=== PATIENT | male | born 1950 | race Caucasian/White ===

== ENCOUNTER → 2017-01-18 | Outpatient (CLI) | payer MEDICARE, BC ==
[2017-01-18 20:44] LABS: ALT 30 U/L (21-72); AST 23 U/L (17-59); Alkaline Phosphatase 74 U/L (38-126); Anion Gap 10 mmol/L; Blood Urea Nitrogen 14 mg/dL (9-20); Calcium 9.2 mg/dL (8.4-10.2); Carbon Dioxide 25 mmol/L (22-30); Chloride 106 mmol/L (98-107); Cholesterol 124 mg/dL (<200); Glucose 146 mg/dL (74-99); HDL Cholesterol 32 mg/dL (40-60); Non-African American GFR(MDRD) >60 (>60 ml/min/1.73 sqM); Sodium 141 mmol/L (137-145); Total Bilirubin 0.8 mg/dL (0.2-1.3); Total Protein 6.9 g/dL (6.3-8.2); Triglycerides 248 mg/dL (<150)
[2017-01-18 21:59] LABS: Hemoglobin A1C 6.2 % (4.2-6.1)
== END ==
LOC: MMGSC 10:28
PROVIDERS: ATTEND Family Medicine
DX: I10 Essential (primary) hypertension (principal); E11.9 Type 2 diabetes mellitus without complications
CPT/HCPCS: 36415; 80053; 80061; 83036

== ENCOUNTER → 2017-12-15 | Outpatient (CLI) | payer MEDICARE, BC ==
[2017-12-15 11:10] LABS: ALT 36 U/L (21-72); AST 23 U/L (17-59); Cholesterol 108 mg/dL (<200); HDL Cholesterol 32 mg/dL (40-60); LDL Cholesterol,Calculated 39 mg/dL (0-99); Triglycerides 185 mg/dL (<150)
== END | disposition home or self-care (01) ==
LOC: LABWHC1 10:19
PROVIDERS: ATTEND Internal Medicine Interventional Cardiology
DX: E78.2 Mixed hyperlipidemia (principal)
CPT/HCPCS: 36415; 80061; 84450; 84460

== ENCOUNTER 2018-05-17 08:06 | Day surgery (SDC) | payer MEDICARE, BC ==
[~2018-05-17 08:06] MED LIST: LACTATED RINGERS 1,000 ML IV SCH
[2018-05-17 08:51] VITALS: TEMP 97.9
[2018-05-17 08:59] LABS: Glucose,Whole Blood 156 mg/dL (75-99)
[2018-05-17] MEDS ORDERED: PROPOFOL 10 MG/ML 20 ML VIAL IV ONE (09:09)
[2018-05-17 09:42] VITALS: RESP 16
--- NOTE | 2018-05-17 09:46 | P.PCN ---
Date of Procedure: 05/17/18 Procedure(s) Performed: Procedure: Colonoscopy and biopsy. Preoperative diagnosis: Screening for neoplasia. Postoperative diagnosis: Diminutive polyp around the hepatic flexure biopsied, otherwise, exam to the cecum within normal limits. Preparation: HalfLytely prep. Sedation: Was provided by anesthesia. Brief clinical history: The patient is a 67-year-old male who is scheduled for this evaluation for screening for neoplasia age being his risk factor. There is no family history of colon cancer. He has no abdominal complaints, bleeding or anemia. He had a prior colonoscopy around 8 years ago. Procedure: With the patient on his left lateral decubitus position and after informed consent and adequate sedation, the perianal area was inspected and it did not show any fissures or fistulas. There was skin redundancy and relaxation and external skin tags. There were no masses felt on digital rectal examination. The Olympus CFQ 160L video colonoscope was then inserted in the rectum in the usual fashion and advanced to the cecum. There was a diminutive polyp around the hepatic flexure which I biopsied, but there were no large polyps or cancer. The mucosa appeared healthy. No other polyps or tumors were seen or any obvious diverticular disease or other pathology. I retroflexed the endoscope in the rectum before the endoscope was withdrawn. The patient tolerated the procedure well. Plan: The patient was reassured. He will follow up with you as planned and I recommended repeat exam in 5-10 years depending on the pathology results.
[2018-05-17 10:00] VITALS: BP 118/66; PULSE 49
== END 2018-05-17 10:41 | disposition home or self-care (01) ==
LOC: ORWHC2ENDO 08:06
DX: Z12.11 Encounter for screening for malignant neoplasm of colon (principal); D12.3 Benign neoplasm of transverse colon; J45.909 Unspecified asthma, uncomplicated; I10 Essential (primary) hypertension; G47.33 Obstructive sleep apnea (adult) (pediatric); E78.5 Hyperlipidemia, unspecified; M19.90 Unspecified osteoarthritis, unspecified site; N40.0 Benign prostatic hyperplasia without lower urinary tract symptoms; Z95.5 Presence of coronary angioplasty implant and graft; I25.10 Atherosclerotic heart disease of native coronary artery without angina pectoris; E11.9 Type 2 diabetes mellitus without complications; Z79.82 Long term (current) use of aspirin; Z79.84 Long term (current) use of oral hypoglycemic drugs; Z79.899 Other long term (current) drug therapy
CPT/HCPCS: 88305; 45380; J2704

== ENCOUNTER → 2019-03-10 | Outpatient (CLI) | payer MEDICARE, OTHER ==
[2019-03-10 12:38] LABS: HCT 41.5 % (39.0-53.0); MCH 30.2 pg (25.0-35.0); MCHC 33.8 g/dL (31.0-37.0); MCV 89.2 fL (80.0-100.0); Mean Platelet Volume 7.1; Platelet Count 187 k/uL (150-450); RBC 4.65 m/uL (4.30-5.90); RDW 14.7 % (11.5-15.5); WBC 5.2 k/uL (3.8-10.6)
[2019-03-10 12:42] LABS: Potassium 4.2 mmol/L (3.5-5.1)
== END | disposition home or self-care (01) ==
LOC: LABWHC1 11:46
PROVIDERS: ATTEND Internal Medicine Interventional Cardiology
DX: Z01.812 Encounter for preprocedural laboratory examination (principal); I25.10 Atherosclerotic heart disease of native coronary artery without angina pectoris
CPT/HCPCS: 80051; 82565; 84520; 85027

== ENCOUNTER → 2019-03-20 | Day surgery (SDC) | payer MEDICARE, OTHER ==
[2019-03-15 14:47] VITALS: BMI 26.2
[~2019-03-20] MED LIST changes: +ALPRAZolam 0.25 MG TAB PO PRN; +ALPRAZolam 0.5 MG TAB PO PRN; +ASPIRIN 325 MG TAB PO ONE; +ATORVASTATIN 80 MG TAB PO ONE; +HEPARIN SODIUM 1,000 UN/ML (10ML VL) IV ONE; +HEPARIN SODIUM 1,000 UN/ML (10ML VL) ONE; +IOPAMIDOL-370 125ML BTL INJ ONE; +IV FLUID CONTINUATION 600 ML IV ONE; -LACTATED RINGERS 1,000 ML IV SCH; +LIDOCAINE 1% INJ 10MG/ML (20 ML MDV) ONE; +LIDOCAINE 1% INJ 10MG/ML (20 ML MDV) SQ ONE; +MIDAZOLAM (PF) 2 MG/2 ML VIAL IV ONE; +NITROGLYCERIN SL TABS 0.4 MG TAB SUBLINGUAL PRN; +RX INFO: IV CONTRAST WAS GIVEN 1 EACH MISC MISCELLANE PRN; +SODIUM CHLORIDE 0.9% 1,000 ML IV SCH; +SODIUM CHLORIDE 0.9% 1,000 ML in EMPTY BAG 1 BAG IV ONE; +VERAPAMIL 2.5 MG/ML 2 ML AMP ONE; +fentaNYL (PF) 50 MCG/ML 2 ML AMP IV ONE; +fentaNYL (PF) 50 MCG/ML 2 ML AMP ONE
[2019-03-20 07:12] LABS: Glucose,Whole Blood 160 mg/dL (75-99)
[2019-03-20 07:14] VITALS: TEMP 98.1
[2019-03-20] MEDS: BENZOCAINE SPRAY 1 CAN MUCOUS MEM ONE ×2 (08:30→08:38)
[2019-03-20] MEDS: MIDAZOLAM (PF) 2 MG/2 ML VIAL IV ONE ×2 (08:41→08:43)
[2019-03-20] MEDS: VERAPAMIL SYRINGE (5 MG/10 ML) INTRAARTER ONE ×2 (09:23→09:37)
--- NOTE | 2019-03-20 09:40 | ECHOT ---
TRANSESOPHAGEAL ECHOCARDIOGRAM DATE OF SERVICE: 03/20/2019 PERFORMING PHYSICIAN: Amilcar Patterson MD, Securities Research Analyst. PROCEDURE PERFORMED: Transesophageal echocardiogram. INDICATION: This is a very pleasant 68-year-old gentleman who is known to have mitral regurgitation, who was experiencing recently progressing shortness of breath with exertion with the feeling of tired and fatigued. Recent transthoracic echocardiogram revealed moderate to severe mitral regurgitation and he was brought today to undergo a ULICES. COMPLICATION: None. LEVEL OF SEDATION: Moderate with sedation length of 15 minutes. PROCEDURE DESCRIPTION: After obtaining an informed consent, the patient was brought to the transesophageal echocardiogram suite. A pulse oximetry and heart rate monitors were attached the patient. The patient was turned into left lateral position. Subsequently the patient was sedated using 3 mg of Versed and 50 mcg of fentanyl on divided doses. The transesophageal echocardiogram probe was advanced through the bite guard to the mid esophagus where a 2D echocardiogram images, continuous and pulse-wave Doppler, as well as color Dopplers were performed. Particular attention was paid to the mitral valve apparatus. Subsequently we did agitated saline study to look for patent foramen ovale. The procedure was completed without any complication. FINDINGS: The left ventricular dimension and systolic function appeared to be within normal limits. The ejection fraction was about 55%. The right ventricle appeared to be of normal size and function. The left atrium is severely dilated. The left atrial appendage appeared to be free from any thrombus. The interatrial septum appeared to be intact without any evidence of shunt. The aortic valve is trileaflet valve without stenosis with mild insufficiency. The mitral valve is thickened with evidence of moderate mitral regurgitation by PISA. The tricuspid valve and pulmonic valve appear to be within normal limits. The interatrial septum appeared to be intact without any evidence of shunt. CONCLUSION: 1. Normal left ventricular dimension and systolic function. 2. Normal right ventricular dimension and systolic function. 3. Severely dilated left atrium. 4. Intact interatrial septum. 5. Intact left atrial appendage. 6. Trileaflet aortic valve without stenosis with mild insufficiency. 7. Thickened anterior and posterior mitral leaflet with evidence of moderate mitral insufficiency. 8. The mitral insufficiency was quantitated using PISA. 9. Normal tricuspid valve and pulmonic valve. 10.No evidence of pericardial effusion. MMODL / IJN: [id number] /
--- NOTE | 2019-03-20 09:48 | P.PCN ---
Date of Procedure: 03/20/19 Operative Findings: CARDIAC CATHETERIZATION PERFORMING PHYSICIAN: Amilcar Patterson MD, RPVI PROCEDURE PERFORMED: 1. Selective right and left coronary angiogram 2. Left heart catheterization INDICATION: This is a pleasant 68-year-old gentleman who was diagnosed recently was moderate to severe MR by transthoracic echocardiogram was brought today to undergo a transesophageal echocardiogram as well as heart catheterization. COMPLICATION: None APPROACH: Right radial artery PROCEDURE DESCRIPTION: After obtaining an informed consent, the patient was brought to cardiac curb and gutter laborer. Local anesthesia was performed using lidocaine subcutaneously. The right radial artery was cannulated using Seldinger technique, the guidewire passed easily, following that we advanced a 5-Irish sheath dilator assembly, the wire and dilator were removed and sheath was flushed. Following that, 2 mg of verapamil along with 5000 unit heparin were given. Selective right and left coronary angiogram using a 6-Irish JR4 and JL 3.5 catheters. Following that we did left heart catheterization and then LV gram using 6-Irish pigtail catheter. The procedure was completed there was no complication. SELECTIVE CORONARY ANGIOGRAM: The right coronary artery: Is a large caliber vessel and dominant vessel. Its angiographically normal. Distally bifurcates into PDA and PLV branches both appeared to be angiographically normal. Left main: Is angiographically normal. Bifurcates into left circumflex, ramus intermedius, and left anterior descending artery The left circumflex: Is a large caliber vessel and nondominant vessel and appears to be angiographically normal. Gives rises in the midportion the first and second obtuse marginal branches and both appeared to be angiographically normal. The ramus intermedius: Is a large caliber vessel and seems to be angiographically normal. The left anterior descending artery: It is a large caliber vessel. It does have mild disease only. In the midportion gives rises into a diagonal branch which seems to be angiographically normal. HEMODYNAMICS: The LVEDP was about 13 mmHg without significant gradient across aortic valve LV GRAM: Was performed in the SETSWANA projection and using a power injection. The left ventr icular systolic function is normal with an EF of 60% with 3+ MR. CONCLUSION: #1 mild nonobstructive coronary artery disease #2 normal left ventricular systolic function #3 mitral regurgitation seems to be in the 3+ Irish POSTPROCEDURE MANAGEMENT: #1 medical treatment #2 follow-up with the patient
[2019-03-20 12:34] VITALS: RESP 18
[2019-03-20 12:36] VITALS: BP 126/68; PULSE 53
== END ==
LOC: CATHCVL 06:29
PROVIDERS: ATTEND Internal Medicine Interventional Cardiology
DX: I08.0 Rheumatic disorders of both mitral and aortic valves (principal); I25.10 Atherosclerotic heart disease of native coronary artery without angina pectoris; I10 Essential (primary) hypertension; Z95.5 Presence of coronary angioplasty implant and graft; E78.5 Hyperlipidemia, unspecified; E11.9 Type 2 diabetes mellitus without complications; Z82.49 Family history of ischemic heart disease and other diseases of the circulatory system; Z79.84 Long term (current) use of oral hypoglycemic drugs; Z79.82 Long term (current) use of aspirin; Z79.890 Hormone replacement therapy; Z79.899 Other long term (current) drug therapy; Z88.8 Allergy status to other drugs, medicaments and biological substances
CPT/HCPCS: 93312; 93320; 93325; 93458; C1769; C1894; J2001; J3010; J1644; Q9967; J2250

== ENCOUNTER → 2019-03-27 | Outpatient (CLI) | payer MEDICARE, OTHER ==
[2019-03-27 19:21] LABS: T4, Free (Free Thyroxine) 1.8 ng/dL (0.80-1.80)
== END | disposition home or self-care (01) ==
LOC: LABWHC1 14:29
PROVIDERS: ATTEND Family Medicine
DX: E03.9 Hypothyroidism, unspecified (principal)
CPT/HCPCS: 36415; 84439; 84443

== ENCOUNTER → 2019-08-14 | Outpatient (CLI) | payer MEDICARE, OTHER ==
[2019-08-14 16:20] LABS: Urine Creatinine 79.3 mg/dL
[2019-08-14 17:13] LABS: Albumin 4.4 g/dL (3.80-4.90); Albumin/Globulin Ratio 2.44 (1.60-3.17); Anion Gap 8.8 mmol/L (4.00-12.00); Calcium 9.4 mg/dL (8.7-10.3); Carbon Dioxide 28.2 mmol/L (21.6-31.8); Chol/HDL Ratio 4.1; Globulin 1.8 g/dL (1.6-3.3); LDL Cholesterol,Calculated 21.2 mg/dL (0.0-131.0); Non-African American GFR(CKD) 75.9 (60.0-200.0); Potassium 3.9 mmol/L (3.5-5.5); Total Bilirubin 0.7 mg/dL (0.2-1.2); Total Protein 6.2 g/dL (6.2-8.2); VLDL Calculation 68.8 mg/dL (5.00-40.00)
[2019-08-14 17:49] LABS: Hemoglobin A1C 6.7 % (4.0-6.0)
== END | disposition home or self-care (01) ==
LOC: LABWHC1 10:17
PROVIDERS: ATTEND Family Medicine
DX: I10 Essential (primary) hypertension (principal); E11.9 Type 2 diabetes mellitus without complications; E78.5 Hyperlipidemia, unspecified
CPT/HCPCS: 36415; 80053; 80061; 82043; 82570; 83036

== ENCOUNTER → 2020-08-15 | Outpatient (CLI) | payer MEDICARE, OTHER ==
[2020-08-16 07:10] LABS: African American GFR (CKD) 49.5 (60.0-200.0); Albumin 4.4 g/dL (3.80-4.90); Albumin/Globulin Ratio 2.32 (1.60-3.17); Anion Gap 10.3 mmol/L (4.00-12.00); BUN/Creat Ratio 11.25 Ratio (12.00-20.00); Calcium 9.4 mg/dL (8.7-10.3); Carbon Dioxide 27.7 mmol/L (21.6-31.8); Globulin 1.9 g/dL (1.6-3.3); Magnesium 1.8 mg/dL (1.5-2.4); Non-African American GFR(CKD) 42.7 (60.0-200.0); Total Bilirubin 0.7 mg/dL (0.2-1.2); Total Protein 6.3 g/dL (6.2-8.2)
[2020-08-16 07:19] LABS: PSA Annual Screen 2.7 ng/mL (0.0-4.0)
== END | disposition home or self-care (01) ==
LOC: LABWHC1 15:04
PROVIDERS: ATTEND Family Medicine
DX: I10 Essential (primary) hypertension (principal); E78.2 Mixed hyperlipidemia; R25.2 Cramp and spasm; Z12.5 Encounter for screening for malignant neoplasm of prostate
CPT/HCPCS: 80053; 82550; 83735; 36415; G0103

== ENCOUNTER → 2020-10-11 | Outpatient (CLI) | payer MEDICARE, OTHER ==
[2020-10-11 16:43] LABS: African American GFR (CKD) 87.4 (60.0-200.0); Albumin 4.3 g/dL (3.80-4.90); Albumin/Globulin Ratio 2.26 (1.60-3.17); Anion Gap 7.6 mmol/L (4.00-12.00); Calcium 9.2 mg/dL (8.7-10.3); Carbon Dioxide 28.4 mmol/L (21.6-31.8); Chol/HDL Ratio 3.96; Globulin 1.9 g/dL (1.6-3.3); Non-African American GFR(CKD) 75.4 (60.0-200.0); Potassium 3.9 mmol/L (3.5-5.5); Total Bilirubin 0.7 mg/dL (0.2-1.2); Total Protein 6.2 g/dL (6.2-8.2)
[2020-10-11 17:28] LABS: Urine Creatinine 34.6 mg/dL
[2020-10-11 20:06] LABS: Hemoglobin A1C 7.2 % (4.0-6.0)
== END | disposition home or self-care (01) ==
LOC: LABWHC1 10-10 11:02
PROVIDERS: ATTEND Family Medicine
DX: E11.9 Type 2 diabetes mellitus without complications (principal); I10 Essential (primary) hypertension; E78.5 Hyperlipidemia, unspecified; E55.9 Vitamin D deficiency, unspecified
CPT/HCPCS: 36415; 80053; 80061; 82043; 82306; 82570; 83036

== ENCOUNTER → 2021-01-21 | Outpatient (CLI) | payer MEDICARE, OTHER | END | disposition home or self-care (01) | LOC: LABWHC1 10:45 | PROVIDERS: ATTEND Family Medicine | DX: E11.9 Type 2 diabetes mellitus without complications (principal); E55.9 Vitamin D deficiency, unspecified | CPT/HCPCS: 36415; 82306; 83036 ==

== ENCOUNTER → 2021-02-17 | Outpatient (CLI) | payer MEDICARE, OTHER | END | disposition home or self-care (01) | LOC: LABWHC1 14:00 | PROVIDERS: ATTEND Family Medicine | DX: Z20.822 Contact with and (suspected) exposure to COVID-19 (principal); R05 Cough; R09.81 Nasal congestion; R07.89 Other chest pain; R06.2 Wheezing | CPT/HCPCS: U0003; U0005 ==

== ENCOUNTER → 2021-02-19 | Outpatient (CLI) | payer MEDICARE, OTHER ==
--- NOTE | 2021-02-19 11:23 | XR ---
EXAMINATION TYPE: XR chest 2V DATE OF EXAM: 02/19/2021 COMPARISON: NONE TECHNIQUE: PA and lateral views submitted. HISTORY: Cough and shortness of breath FINDINGS: Heart size upper limits of normal. No overt failure. Arthropathy right shoulder. Mild hyper inflation correlate for COPD. The lungs are clear and there is no pneumothorax, pleural effusion, or focal pneumonia. IMPRESSION: 1. No acute process.
== END | disposition home or self-care (01) ==
LOC: RADXRMAIN 11:01
PROVIDERS: ATTEND Family Medicine
DX: R06.02 Shortness of breath (principal)
CPT/HCPCS: 71046

== ENCOUNTER → 2021-05-08 | Outpatient (CLI) | payer MEDICARE, OTHER | END | disposition home or self-care (01) | LOC: LABWHC1 10:51 | PROVIDERS: ATTEND Internal Medicine Critical Care Medicine | DX: J45.50 Severe persistent asthma, uncomplicated (principal) | CPT/HCPCS: 36415; 82785; 85008 ==

== ENCOUNTER 2021-11-13 06:03 | Day surgery (SDC) | payer MEDICARE, OTHER ==
[2021-11-11 14:54] VITALS: BMI 25.2
[2021-11-13] MEDS ORDERED: SODIUM CHLORIDE 0.9% 1,000 ML IV SCH (06:05)
[2021-11-13 06:37] LABS: Glucose,Whole Blood 156 mg/dL (75-99)
[2021-11-13 07:22] LABS: Calcium 8.5 mg/dL (8.4-10.2); Potassium 3.6 mmol/L (3.5-5.1)
[2021-11-13] MEDS ORDERED: PROPOFOL 10 MG/ML 20 ML VIAL IV ONE (07:27)
--- NOTE | 2021-11-13 07:50 | P.PCN ---
Date of Procedure: 11/13/21 Operative Findings: Cardioversion Report Performing physician Amilcar Patterson M.D. Procedure performed Successful cardioversion of atrial fibrillation to normal sinus mechanism using 200 J at first attempt Indication Symptomatic atrial fibrillation Complication None Level of sedation The procedure was performed under deep sedation using propofol with SEPHORA OPERATIONS CONSULTANT in the room Procedure description After obtaining an informed consent the patient was brought to the recovery room. Sedation was introduced using propofol with SEPH[employer]PER[employer] CONSULTANT in the room. Subsequently the patient cardioverted from atrial fibrillation to normal sinus mechanism using 200 J and first attempt Conclusion Successful cardioversion of atrial fibrillation to normal sinus mechanism using 200 J Postprocedure management Continue the current medical regimen Continue oral anticoagulation Follow-up with the patient
[2021-11-13 07:59] VITALS: TEMP 97.6
[2021-11-13 19:02] VITALS: BP 130/77; PULSE 67; RESP 16
== END 2021-11-13 09:35 | disposition home or self-care (01) ==
LOC: CATHCVL 06:03
PROVIDERS: ATTEND Internal Medicine Interventional Cardiology
DX: I48.91 Unspecified atrial fibrillation (principal); E11.9 Type 2 diabetes mellitus without complications; I10 Essential (primary) hypertension; E78.5 Hyperlipidemia, unspecified; I25.10 Atherosclerotic heart disease of native coronary artery without angina pectoris; E03.9 Hypothyroidism, unspecified; Z82.49 Family history of ischemic heart disease and other diseases of the circulatory system; Z79.899 Other long term (current) drug therapy; Z79.01 Long term (current) use of anticoagulants; Z95.1 Presence of aortocoronary bypass graft; Z20.822 Contact with and (suspected) exposure to COVID-19; Z79.82 Long term (current) use of aspirin
CPT/HCPCS: 92960; 80048; 87635; J2704

== ENCOUNTER → 2022-02-03 | Outpatient (CLI) | payer MEDICARE, OTHER ==
[2022-02-03 18:29] LABS: African American GFR (CKD) 62.6 (60.0-200.0); Albumin 4.2 g/dL (3.8-4.9); Albumin/Globulin Ratio 1.39 (1.60-3.17); Anion Gap 11.4 mmol/L (10.00-18.00); BUN/Creat Ratio 14.12 Ratio (12.00-20.00); Blood Urea Nitrogen 18.5 mg/dL (9.0-27.0); Calcium 9.1 mg/dL (8.7-10.3); Carbon Dioxide 25.3 mmol/L (20.0-27.5); Potassium 3.7 mmol/L (3.5-5.5); Total Bilirubin 0.9 mg/dL (0.30-1.20); Total Protein 7.2 g/dL (6.2-8.2)
== END | disposition home or self-care (01) ==
LOC: LABWHC1 11:04
PROVIDERS: ATTEND Family Medicine
DX: E11.65 Type 2 diabetes mellitus with hyperglycemia (principal)
CPT/HCPCS: 36415; 80053; 83036

== ENCOUNTER → 2022-10-07 | Outpatient (CLI) | payer MEDICARE, OTHER ==
[2022-10-07 10:39] LABS: HCT 44.2 % (39.6-50.0); HGB 14.8 g/dL (13.0-17.0); MCH 31.1 pg (27.0-32.0); MCHC 33.5 g/dL (32.0-37.0); MCV 92.9 fL (80.0-97.0); Mean Platelet Volume 10.2 fL (9.5-12.2); NRBC Per 100 WBC 0 /100 WBCS (0.0-0.0); Platelet Count 175 X 10*3/uL (140-440); RBC 4.76 X 10*6/uL (4.40-5.60); RDW 13.4 % (11.5-14.5); WBC 6.83 X 10*3/uL (4.50-10.00)
[2022-10-07 11:11] LABS: ALT 23 U/L (10-49); AST 21 U/L (14-35); African American GFR (CKD) 62.7 (60.0-200.0); Albumin 4.3 g/dL (3.8-4.9); Albumin/Globulin Ratio 1.48 (1.60-3.17); Alkaline Phosphatase 105 U/L (41-126); BUN/Creat Ratio 11.15 Ratio (12.00-20.00); Blood Urea Nitrogen 14.5 mg/dL (9.0-27.0); Calcium 9.2 mg/dL (8.7-10.3); Carbon Dioxide 23.8 mmol/L (20.0-27.5); Chloride 109 mmol/L (96-109); Chol/HDL Ratio 4.01 Ratio; Globulin 2.9 g/dL (1.6-3.3); Glucose 155 mg/dL (70-110); LDL Cholesterol,Calculated 73.9 mg/dL (0.0-131.0); Non-African American GFR(CKD) 54.1 (60.0-200.0); Sodium 146 mmol/L (135-145); Total Protein 7.2 g/dL (6.2-8.2)
[2022-10-07 23:26] LABS: Urine Creatinine 71.5 mg/dL (39.0-259.0)
== END | disposition home or self-care (01) ==
LOC: LABWHC1 07:59
PROVIDERS: ATTEND Family Medicine
DX: Z00.00 Encounter for general adult medical examination without abnormal findings (principal); E11.9 Type 2 diabetes mellitus without complications
CPT/HCPCS: 36415; 80053; 80061; 82043; 82570; 83036; 84153; 85027

== ENCOUNTER → 2023-03-17 | Outpatient (CLI) | payer MEDICARE, OTHER | LOC: 3 N SLEEP 11:00 | PROVIDERS: ATTEND Internal Medicine Critical Care Medicine | DX: G47.33 Obstructive sleep apnea (adult) (pediatric) (principal); Z88.8 Allergy status to other drugs, medicaments and biological substances ==

== ENCOUNTER → 2024-04-25 | Outpatient (CLI) | payer MEDICARE, OTHER ==
[2024-04-26 03:22] LABS: Albumin 4.3 g/dL (3.8-4.9); Albumin/Globulin Ratio 1.72 Ratio (1.60-3.17); Bilirubin, Conjugated 0.21 mg/dL (0.20-0.40); Bilirubin,Unconjugated 0.49 mg/dL (0.20-1.00); Globulin 2.5 g/dL (1.6-3.3); Total Bilirubin 0.7 mg/dL (0.3-1.2); Total Protein 6.8 g/dL (6.2-8.2)
== END | disposition home or self-care (01) ==
LOC: LABWHC1 16:13
PROVIDERS: ATTEND Internal Medicine Interventional Cardiology
DX: Z00.00 Encounter for general adult medical examination without abnormal findings (principal)
CPT/HCPCS: 36415; 80076; 84443

== ENCOUNTER → 2024-11-29 | Outpatient (CLI) | payer MEDICARE, OTHER ==
--- NOTE | 2024-11-29 09:15 | MR ---
EXAMINATION TYPE: MR Prostate wo/w con DATE OF EXAM: 11/29/2024 COMPARISON: None. INDICATION: Elevated PSA PSA: 6.54 ng/ml in September 2024 Recent Biopsy and Date: None Pathology Report (If Applicable): TECHNIQUE: Examination was performed using a 3T MRI without an endorectal coil. Multiparametric imaging was perf ormed with T2 mutliplanar sequences, axial diffusion weighted imaging and dynamic contrast enhanced i maging, utilizing 7 mL intravenous Gadobutrol gadolinium contrast. FINDINGS: PROSTATE VOLUME: 6.0 cm SI x 4.4 cm AP x 5.6 cm LR Vol= 77.4 cc PSA DENSITY: 0.08 ng/ml/cc Enlarged prostate bulging into the bladder base is present. There are some linear areas of slightly d iminished signal on ADC mapping in the peripheral zone of the prostate. No areas of marked diminished signal are identified. There is transitional zone hypertrophy with bilateral nodules. Site 1: In the right base there is area of on circumscribed homogeneous moderately hypointense signal on T2 weighted images measuring 1.3 cm without increased signal on diffusion weighted images or sign ificant postcontrast enhancement posteriorly and laterally PIRADS 4 lesion. IMPRESSION: Significantly enlarged prostate gland consistent with BPH. Suspicious 1.3 cm area right transitional zone towards the base is noted. Highest Assessment Category: 4 MRI Stage: T0 N0 M0 based on review of pelvic images. False negative rates for MRI range from 5-20% depending on risk profile. Assessment Categories: 1 ? Very low (clinically significant cancer is highly unlikely to be present) 2 ? Low (clinically significant cancer is unlikely to be present) 3 ? Intermediate (the presence of clinically significant cancer is equivocal) 4 ? High (clinically significant cancer is likely to be present) 5 ? Very high (clinically significant cancer is highly likely to be present) [facility], , 11/29/2024 9:13 AM
== END | disposition home or self-care (01) ==
LOC: RADMRIMAIN 07:50
PROVIDERS: ATTEND Urology
DX: N40.0 Benign prostatic hyperplasia without lower urinary tract symptoms (principal); R97.20 Elevated prostate specific antigen [PSA]
CPT/HCPCS: 72197; A9585

== ENCOUNTER → 2025-01-09 | Outpatient (CLI) | payer MEDICARE, OTHER ==
[2025-01-09 15:07] LABS: Basophils # (A) 0.03 X 10*3/uL (0.00-0.10); Basophils % (A) 0.4 %; Eosinophils # (A) 0.23 X 10*3/uL (0.04-0.35); Eosinophils % (A) 3.4 %; HCT 43.3 % (39.6-50.0); HGB 13.5 g/dL (13.0-17.0); Immature Grans, Automated 0.60 %; Lymphocytes # (A) 1.07 X 10*3/uL (0.90-5.00); Lymphocytes % (A) 16.0 %; MCH 30.3 pg (27.0-32.0); MCHC 31.2 g/dL (32.0-37.0); MCV 97.3 FL (80.0-97.0); Monocytes # (A) 0.62 X 10*3/uL (0.20-1.00); Monocytes % (A) 9.3 %; NRBC Per 100 WBC 0 X 10*3/uL (0.00-0.01); Neutrophils # (A) 4.69 X 10*3/uL (1.80-7.70); Neutrophils % (A) 70.3 %; Platelet Count 179 X 10*3/uL (140-440); RBC 4.45 X 10*6/uL (4.40-5.60); RDW 14.0 % (11.5-14.5); WBC 6.68 X 10*3/uL (4.50-10.00)
[2025-01-09 15:18] LABS: Anion Gap 9.10 mmol/L (4.00-12.00); BUN/Creat Ratio 13.83 Ratio (12.00-20.00); Blood Urea Nitrogen 16.6 mg/dL (9.0-27.0); Carbon Dioxide 25.9 mmol/L (21.6-31.8); Chloride 107 mmol/L (96-109); Glucose 143 mg/dL (70-110); Potassium 4.0 mmol/L (3.5-5.5); Sodium 142 mmol/L (135-145)
[2025-01-09 15:19] LABS: Calcium 8.9 mg/dL (8.7-10.3)
== END | disposition home or self-care (01) ==
LOC: LABPAT 07:14
PROVIDERS: ATTEND Urology
DX: Z01.812 Encounter for preprocedural laboratory examination (principal); R97.20 Elevated prostate specific antigen [PSA]
CPT/HCPCS: 80048; 85025

== ENCOUNTER 2025-01-10 12:33 | Day surgery (SDC) | payer MEDICARE, OTHER ==
[2025-01-08 16:47] VITALS: BMI 24.3
--- NOTE | 2025-01-09 21:41 | P.GSHP ---
History of Present Illness H&P Date: 01/09/25 Chief Complaint: Elevated PSA level The patient is a 74-year-old white male whose PSA level recently fara to 6.54. He has taken tamsulosin for BPH for approximately 8 years. He has no family history of prostate cancer. Digital rectal examination reveals the prostate to be moderately enlarged with right-sided asymmetrical enlargement, no nodularity. Prostate MRI reveals a prostate volume of 77.4 cc with a PI-RADS 4 lesion at the right base. - Cardiovascular Cardiovascular: Reports high blood pressure, Reports irregular heart beat - Genitourinary (Male) Genitourinary: Reports nocturia Past Medical History Past Medical History: Atrial Fibrillation, Asthma, Cancer, Diabetes Mellitus, Hyperlipidemia, Hypertension, Osteoarthritis (OA), Prostate Disorder, Sleep Apnea/CPAP/BIPAP, Thyroid Disorder Additional Past Medical History / Comment(s): Elevated PSA. R eye retinal blood clot-follows up w/ specialist every 6-8 weeks for eye injection. Basal cell carcinoma of the scalp and nose, sleep apnea with CPAP, history of heart murmur . History of Any Multi-Drug Resistant Organisms: None Reported Past Surgical History: Heart Catheterization, Heart Catheterization With Stent, Tonsillectomy Additional Past Surgical History / Comment(s): hemorrhoidectomy, basal cell carcinoma of the scalp and nose removal. Past Anesthesia/Blood Transfusion Reactions: No Reported Reaction Additional Past Anesthesia/Blood Transfusion Reaction / Comment(s): No hx of blood transfusion Date of Last Stent Placement:: APPROX FALL 2015 Smoking Status: Never smoker, Second hand smoke exposure - Past Family History Mother Family Medical History: Cancer Father Family Medical History: CVA/TIA Additional Family Medical History / Comment(s): Father at age 79 due to complications from diabetes and was found to have a mass in his chest possible lung cancer with history of heavy smoking. Brother(s) Additional Family Medical History / Comment(s): Patient had 1 brother that at 11 months old due to heart condition. Daughter(s) Additional Family Medical History / Comment(s): Patient has 3 daughters and two have a history of celiac disease. Medications and Allergies Home Medications Medication Instructions Recorded Confirmed Type Aspirin 81 mg PO DAILY 03/11/16 01/08/25 History Levothyroxine Sodium [Levoxyl] 137 mcg PO QAM 03/11/16 01/08/25 History amLODIPine [Norvasc] 5 mg PO BID 03/11/16 01/08/25 History Atorvastatin [Lipitor] 80 mg PO HS #30 tab 03/18/16 01/08/25 Rx ALPRAZolam [Xanax] 0.25 mg PO BID PRN 03/15/19 01/08/25 History carvediloL [Coreg] 12.5 mg PO QAM 03/15/19 01/08/25 History Empagliflozin [Jardiance] 10 mg PO DAILY 10/10/21 01/08/25 History Losartan Potassium [Cozaar] 100 mg PO DAILY 10/10/21 01/08/25 History Rivaroxaban [Xarelto] 20 mg PO DAILY 10/10/21 01/08/25 History metFORMIN HCL 500 mg PO DAILY 10/10/21 01/08/25 History Amiodarone [Cordarone] 100 mg PO DAILY 11/13/21 01/08/25 History Alfuzosin HCl [Alfuzosin HCl ER] 10 mg PO DAILY 01/08/25 01/08/25 History Fluticasone/Umeclidin/Vilanter 1 inhalation INHALATION DAILY 01/08/25 01/08/25 History [Trelegy Ellipta 100-62.5-25] Furosemide [Lasix] 20 mg PO DAILY PRN 01/08/25 01/08/25 History Semaglutide [Ozempic] 1 mg SQ SA 01/08/25 01/08/25 History hydrALAZINE HCL 25 mg PO TID 01/08/25 01/08/25 History Allergies Allergy/AdvReac Type Severity Reaction Status Date / Time nitroglycerin AdvReac Severe HYPOTENSION, Verified 01/08/25 16:31 [facility]NC[facility] Surgical - Exam - General well developed, well nourished, no distress - Respiratory normal respiratory effort - Abdomen Hernia: umbilical - Genitourinary Circumcised phallus with mild balanitis. Normal scrotum and testes. - Rectum Rectum: normal sphincter tone, no masses, other (Prostate moderately enlarged with right-sided asymmetrical enlargement.) - Psychiatric oriented to time, oriented to person, oriented to place, speech is normal, memory intact Assessment and Plan (1) Elevated prostate specific antigen [PSA] Status: Acute Code(s): R97.20 - ELEVATED PROSTATE SPECIFIC ANTIGEN [PSA] SNOMED Code(s): 027306564 Plan: The patient will undergo MRI-Ultrasound fusion transrectal biopsies of the prostate. The procedure has been reviewed in detail with the patient. He has been made aware of potential risks, which include anesthesia, bleeding, and infection. He is also aware that a negative biopsy does not completely rule out prostate cancer.
[2025-01-10] MEDS: IV FLUID CONTINUATION 1,000 ML IV ONE (13:17)
[2025-01-10 13:39] LABS: Glucose,Whole Blood 112 mg/dL (70-110)
[2025-01-10] MEDS: LACTATED RINGERS 1,000 ML IV SCH (13:46)
[2025-01-10] MEDS: GENTAMICIN 40 MG/ML 2 ML VIAL IM PRN (13:50)
[2025-01-10 13:54] VITALS: TEMP 97
[2025-01-10] MEDS ORDERED: PROPOFOL 10 MG/ML 20 ML VIAL IV ONE (14:47)
--- NOTE | 2025-01-10 15:11 | P.OP ---
Date of Procedure: 01/10/25 Preoperative Diagnosis: Elevated PSA level Postoperative Diagnosis: Same Procedure(s) Performed: MRI fusion biopsies of the prostate Anesthesia: MAC Surgeon: Eric Landry Estimated Blood Loss (ml): 10 IV fluids (ml): 300 Pathology: other (Prostate biopsies) Condition: stable Disposition: PACU Indications for Procedure: The patient is a 74-year-old white male whose PSA level recently fara to 6.54. He has taken tamsulosin for BPH for approximately 8 years. He has no family history of prostate cancer. Digital rectal examination reveals the prostate to be moderately enlarged with right-sided asymmetrical enlargement, no nodularity. Prostate MRI reveals a prostate volume of 77.4 cc with a PI-RADS 4 lesion at the right base. He now comes for fusion biopsies. Operative Findings: Suspicious lesion is located anteriorly within the prostate. An anal growth is noted which likely represents rectal prolapse. Description of Procedure: The patient was taken to the operating room and placed in the left lateral decubitus position. Redundant tissue was noted surrounding the anus which likely is the result of rectal prolapse. SHARA revealed the prostate to be moderately enlarged with right-sided asymmetrical enlargement. The [place] transrectal ultrasound probe was placed intrarectally. It was then placed within the stand of the [employer] MRI/TRUS Fusion for Prostate Biopsy system. The prostate was imaged in both the axial and sagittal planes, revealing a prostate volume of 75 cc mL. Using the Biopty gun, 3 biopsies were obtained from the target lesion noted within the right transitional zone at the base. The remaining 12 biopsies of the peripheral zone were obtained utilizing a standard template. Once the procedure was completed, the ultrasound probe was removed. The patient tolerated the procedure well was taken to the recovery room stable condition.
[2025-01-10 15:31] VITALS: RESP 17
[2025-01-10 15:43] VITALS: BP 131/68; PULSE 59
== END 2025-01-10 15:49 | disposition home or self-care (01) ==
LOC: OR 12:33
PROVIDERS: ATTEND Urology
DX: N40.1 Benign prostatic hyperplasia with lower urinary tract symptoms (principal); R35.1 Nocturia; I48.91 Unspecified atrial fibrillation; J45.909 Unspecified asthma, uncomplicated; I10 Essential (primary) hypertension; E78.5 Hyperlipidemia, unspecified; E11.9 Type 2 diabetes mellitus without complications; M19.90 Unspecified osteoarthritis, unspecified site; G47.30 Sleep apnea, unspecified; Z90.89 Acquired absence of other organs; Z85.828 Personal history of other malignant neoplasm of skin; Z82.3 Family history of stroke; Z83.3 Family history of diabetes mellitus; Z79.890 Hormone replacement therapy; Z79.84 Long term (current) use of oral hypoglycemic drugs; Z79.01 Long term (current) use of anticoagulants; Z79.82 Long term (current) use of aspirin; Z79.899 Other long term (current) drug therapy
CPT/HCPCS: 55700; 88344; 88305; J1580; J2704